=== PATIENT | female | born 1990 | race Caucasian/White ===

== ENCOUNTER → 2017-11-06 | Emergency (ER) | payer OTHER ==
[~2017-11-06] VITALS: Ht 152.4 cm; Wt 56.7 kg
== END | disposition home or self-care (01) ==
LOC: ER 19:21
DX: B34.9 Viral infection, unspecified (principal)

== ENCOUNTER 2025-09-25 22:17 | Emergency (ER) | payer OTHER ==
[~2025-09-25] VITALS: Ht 152.4 cm; Wt 59.0 kg
[2025-09-25] MEDS ORDERED: METHYLPREDNISOLONE SOD SUCC 125 MG VIAL IV STA (23:26)
[2025-09-25] MEDS ORDERED: KETOROLAC TROMETHAMINE 30 MG VIAL IV STA (23:26)
[2025-09-26] MEDS ORDERED: METHYLPREDNISOLONE SOD SUCC 125 MG VIAL ONE (00:04)
[2025-09-26] MEDS ORDERED: KETOROLAC TROMETHAMINE 30 MG VIAL ONE (00:04)
[2025-09-26] MEDS ORDERED: ANUSOL-HC25 MG RECTAL (03:25)
[2025-09-26] MEDS ORDERED: KETO10TA2 PO (03:25)
[2025-09-26] MEDS ORDERED: ANUSOL-HC30 G2 TOP (03:25)
== END 2025-09-26 03:44 ==
LOC: ER 22:18
DX: K64.8 Other hemorrhoids (principal)